=== PATIENT | male | born 1975 | race Caucasian/White ===

== ENCOUNTER 2023-09-01 07:59 | Emergency (ER) | payer OTHER, SELFPAY ==
[2023-09-01 08:11] VITALS: BP 136/97; PULSE 108; RESP 18; TEMP 36.8; O2SAT 98; BMI 30.7
--- NOTE | 2023-09-01 08:21 | ED_ITS ---
HPI - Arrhythmia/Palpitations 2 General: Chief Complaint: Arrhythmia/Palpitations Stated Complaint: elavated HR Time Seen by Provider: 09/01/23 08:14 Source: patient Mode of arrival: ambulatory History of Present Illness: 48-year-old male presents to the emergen cy room with complaints of rapid heart rate irregular heart rate. He has a history of intermittent atrial fibrillation is a known history of coronary artery disease. Symptoms began overnight. He is not on any medications to slow his heart rate or any anticoagulation. Not having any chest pain or shortness of breath no radiation of discomfort into the neck or arms. MD complaint: rapid heart beat and heart racing Duration: constant Severity: mild Arrhythmia history: atrial fibrillation Associated symptoms: Deny nausea or vomiting Review of Systems 2 Const: Denies: fever(s) or chills Card: Reports: palpitations and irregular heart rhythm; Denies: chest pain, edema or swelling of feet/ankles Resp: Denies: dyspnea GI: Denies: abdominal pain, nausea or vomiting : Denies: flank pain, dysuria, urinary frequency or urinary urgency Musc: Denies: neck pain or back pain Skin/Breast: Denies: rash PFSH ED 2 PFSH: Medical History History of hypertension History of coronary artery disease Physical Exam 2 Const: GENERAL APPEARANCE: cooperative and comfortable O RIENTATION/CONSCIOUSNESS: Yes awake, Yes oriented to person, Yes oriented to place and Yes oriented to time HENMT: COMMON NORMALS: normocephalic, atraumatic and hearing grossly normal bilaterally HEAD & SCALP: normocephalic and atraumatic Resp: COMMON NORMALS: normal respiratory effort, No retractions, No use of accessory muscles and clear to auscultation bilaterally AUSCULTATION: clear to auscultation bilaterally Cardio: COMMON NORMALS: No murmurs present (Cardio) RATE: tachycardic R HYTHM: abnormal rhythm irregularly irregular GI: COMMON NORMALS: Soft to palpation and No hepatosplenomegaly present A USCULTATION: Yes normoactive bowel sounds PALPATION: Yes Soft to palpation, No Tenderness to palpation present (GI), No Guarding due to palpation present (GI) and Yes No hepatosplenomegaly present Extremity: COMMON NORMALS: normal to inspection, capillary refill normal, no clubbing, cyanosis or edema, no calf tenderness and no pedal edema Neuro: SENSORIUM/ORIENTATION: Yes oriented to person, Yes oriented to place and Yes oriented to time Skin: COMMON NORMALS: no rashes or lesions noted GENERAL SKIN EXAM: no rashes or lesions noted Course 2 Vital Signs: Vital signs: Vital Signs Temperature 98.3 F 09/01/23 08:11 Pulse Rate 63 09/01/23 11:17 Respiratory Rate 15 09/01/23 11:17 Blood Pressure 123/75 09/01/23 11:17 Pulse Oximetry 97 09/01/23 11:17 Oxygen Delivery Me thod Room Air 09/01/23 10:05 MDM - Arrhythmia/Palpitations Medical Decision Making Atrial fibrillation intermittent. Resolved spontaneously while here we ordered to Cardizem to treat but he had resolved spontaneously we did give him 25 mg metoprolol to tartrate he remained in normal sinus rhythm cardiac enzymes are negative. Will discharge home decrease his amlodipine to 5 mg daily add metoprolol succinate 25 mg daily to start tonight. Follow-up with his primary care doctor soon as he is able. Differential Diagnosis Likely palpitations Medical Records I reviewed the patient's medical records. Lab Data I reviewed the patient's lab results. 09/01/23 08:20 09/01/23 08:20 Radiology Impressions Chest X-Ray 09/01/23 08:32 IMPRESSION: No acute disease. Laboratory Results WBC 6.93 10^3/uL (3.29-11.43) 09/01/23 08:20 RBC 5.08 10^6/uL (3.85-5.65) 09/01/23 08:20 Hgb 15.90 g/dL (11.27-16.99) 09/01/23 08:20 Hct 46.0 % (37-53) 09/01/23 08:20 MCV 90.6 fl (82-101) 09/01/23 08:20 MCH 31.3 pg (27-33) 09/01/23 08:20 MCHC 34.6 g/dL (30-55) 09/01/23 08:20 RDW 13.1 % (12.1-15.1) 09/01/23 08:20 Plt Count 371 10^3/cmm (157-399) 09/01/23 08:20 MPV 9.6 fL (7.4-10.4) 09/01/23 08:20 Neut % (Auto) 61.6 % 09/01/23 08:20 Lymph % (Auto) 25.1 % 09/01/23 08:20 Guthrie % (Auto) 10.2 % 09/01/23 08:20 Eos % (Auto) 1.7 % 09/01/23 08:20 Baso % (Auto) 1.3 % 09/01/23 08:20 Neut # (Auto) 4.26 10^3/uL (1.8-7.7) 09/01/23 08:20 Lymph # (Auto) 1.7 10^3/uL (0.8-4.8) 09/01/23 08:20 Guthrie # (Auto) 0.7 10^3/uL (0.2-0.9) 09/01/23 08:20 Eos # (Auto) 0.1 10^3/uL (0.0-0.8) 09/01/23 08:20 Baso # (Auto) 0.1 10^3/uL (0.0-0.1) 09/01/23 08:20 Nucleated RBC % (auto) 0 % 09/01/23 08:20 Nucleated RBCs # 0.0 /100WBC 09/01/23 08:20 Sodium 138 mmol/L (136-145) 09/01/23 08:20 Potassium 3.8 mmol/L (3.5-5.1) 09/01/23 08:20 Chloride 103 mmol/L (98-107) 09/01/23 08:20 Carbon Dioxide 24 mmol/L (22-29) 09/01/23 08:20 Anion Gap 14.8 (5-19) 09/01/23 08:20 BUN 11 mg/dL (6-20) 09/01/23 08:20 Creatinine 0.9 mg/dL (0.7-1.2) 09/01/23 08:20 GFR Calculation 89.7 mL/min (90-130) L 09/01/23 08:20 Glucose 126 mg/dL (65-115) H 09/01/23 08:20 Calculated Osmolality 287 mOsm/kg (285-295) 09/01/23 08:20 Calcium 9.5 mg/dL (8.5-10.5) 09/01/23 08:20 Total Bilirubin 0.2 mg/dL (0.15-1.2) 09/01/23 08:20 AST 18 U/L (0-40) 09/01/23 08:20 ALT 19 U/L (0-41) 09/01/23 08:20 Alkaline Phosphatase 100 U/L (40-130) 09/01/23 08:20 Troponin T Baseline 21 ng/L (0-15) H 09/01/23 08:20 Troponin T 120 Minute 21.80 ng/L (0-15) H 09/01/23 10:27 Delta Troponin T 0.80 ABS# (0-10) 09/01/23 10:27 NT-Pro-B Natriuret Pep 78 pg/mL (0-125) 09/01/23 08:20 Total Protein 7.8 g/dL (6.6-8.7) 09/01/23 08:20 Albumin 4.7 g/dL (3.5-5.2) 09/01/23 08:20 Globulin 3.1 g/dL (1.3-4.6) 09/01/23 08:20 TSH 2.16 uIU/mL (0.27-4.20) 09/01/23 08:20 Urine Color Yellow (Yellow) 09/01/23 08:51 Urine Appearance Clear (CLEAR) 09/01/23 08:51 Urine pH 7 (5-7) 09/01/23 08:51 Ur Specific [place] 1.005 (1.005-1.030) 09/01/23 08:51 Urine Protein Neg (Negative) 09/01/23 08:51 Urine Glucose (UA) Norm (Normal) 09/01/23 08:51 Urine Ketones Negative (Negative) 09/01/23 08:51 Urine Blood Neg (Negative) 09/01/23 08:51 Urine Nitrate Negative (Negative) 09/01/23 08:51 Urine Bilirubin Neg (Negative) 09/01/23 08:51 Urine Urobilinogen Norm mg/dL (Negative) 09/01/23 08:51 Ur Leukocyte Esterase Negative (Negative) 09/01/23 08:51 All radiology interpretation(s) finalized by discharge Discharge Plan Discharge Patient Disposition: Home Clinical Impression: Intermittent atrial fibrillation Condition: Stable Prescriptions: New Toprol XL 25 mg tablet extended release 24 hr 25 mg PO DAILY Qty: 30 0RF Discharge Orders: Discharge ED (Routine); Ordered 09/01/23 Ordered By: Javier Rodas Referrals: Diamond Good, [Primary Care Provider] - Discharge Diet: Usual diet Discharge Activity: Limit activity as instructed Patient Instructions: Opioid Safety, Pain Management Activity Restrictions/Additional Instructions: Thank you for choosing [facility] for your healthcare needs today. It is very important that you follow up as instructed or that you return to the Emergency Department should you have concerns or if your condition changes or worsens in any way. You were seen today with with intermittent atrial fibrillation. You converted to a normal sinus rhythm while in the ER. Reccomend srtartng Toprol XL 25mg daily begining tonight. 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 Would also recommend decreasing your amilodipine to 5mg once daily. Coding Level of Care Code ED Drapery Cutter for Sean Casper
[2023-09-01 08:28] LABS: Basophils # 0.1 10^3/uL (0.0-0.1); Basophils % 1.3 %; Eosinophils # 0.1 10^3/uL (0.0-0.8); Eosinophils % 1.7 %; Lymphocytes # 1.7 10^3/uL (0.8-4.8); Lymphocytes % 25.1 %; Mean Corpuscular HGB Conc 34.6 g/dL (30-55); Mean Corpuscular Hemoglobin 31.3 pg (27-33); Mean Corpuscular Volume 90.6 fl (82-101); Mean Platelet Volume 9.6 fL (7.4-10.4); Monocytes # 0.7 10^3/uL (0.2-0.9); Monocytes % 10.2 %; Neutrophils # 4.26 10^3/uL (1.8-7.7); Neutrophils % 61.6 %; Nucleated Red Blood Cells % 0 %; Platelet Count 371 10^3/cmm (157-399); Red Blood Count 5.08 10^6/uL (3.85-5.65); Red Cell Distribution Width 13.1 % (12.1-15.1); White Blood Count 6.93 10^3/uL (3.29-11.43)
--- NOTE | 2023-09-01 08:32 | XRR_ITS ---
PROCEDURE INFORMATION: Exam: XR Chest Exam date and time: 09/01/2023 8:39 AM Age: 48 years old Clinical indication: Cough and dyspnea; Additional info: Dyspnea/cough TECHNIQUE: Imaging protocol: Radiologic exam of the chest. Views: 1 view. COMPARISON: No relevant prior studies available. FINDINGS: Lungs: Unremarkable. No consolidation. Pleural spaces: Unremarkable. No pleural effusion. No pneumothorax. Heart/Mediastinum: Unremarkable. No cardiomegaly. Bones/joints: Mild scoliosis. Otherwise, unremarkable. XR/XR chest 1V portable [id number] IMPRESSION: No acute disease.
--- NOTE | 2023-09-01 08:36 | ECG_ITS ---
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 Measurements Intervals [place] Rate: 96 P: 34 TX: 150 QRS: 23 QRSD: 86 T: 14 QT: 346 QTc: 438 Interpretive Statements SINUS RHYTHM POSSIBLE LEFT ATRIAL ENLARGEMENT [-0.1mV P-WAVE IN V1/V2] NONSPECIFIC T-WAVE ABNORMALITY No previous ECG available for comparison Electronically Signed On 09-02-2023 20:16:18 CDT by Ania Godwin M.D. [email or web address]
[2023-09-01 08:45] LABS: Alanine Aminotransferase 19 U/L (0-41); Albumin Level 4.7 g/dL (3.5-5.2); Alkaline Phosphatase 100 U/L (40-130); Anion Gap 14.8 (5-19); Aspartate Amino Transferase 18 U/L (0-40); Blood Urea Nitrogen 11 mg/dL (6-20); Calcium 9.5 mg/dL (8.5-10.5); Carbon Dioxide 24 mmol/L (22-29); Chloride 103 mmol/L (98-107); Creatinine Clr Calc Pharmacy 119.5021; Globulin 3.1 g/dL (1.3-4.6); Glomerular Filtration Rate 89.7 mL/min (90-130); Glucose 126 mg/dL (65-115); Osmolality Calculated 287 mOsm/kg (285-295); Potassium 3.8 mmol/L (3.5-5.1); Sodium 138 mmol/L (136-145); Total Bilirubin 0.2 mg/dL (0.15-1.2); Total Protein 7.8 g/dL (6.6-8.7)
[2023-09-01 08:46] LABS: Troponin(5th) Baseline 21 ng/L (0-15)
[2023-09-01] MEDS: metoprolol tartrate 25 mg Tablet PO (08:47)
[2023-09-01] MEDS: aspirin 81 mg Chew Tablet 324 MG PO (08:50)
[2023-09-01 08:56] LABS: Add Urine Microscopic? NO; Charge for UA Resulting for Rev
[2023-09-01 09:01] LABS: NT Pro B Type Natriuretic Pept 78 pg/mL (0-125); Thyroid Stimulating Hormone 2.16 uIU/mL (0.27-4.20)
[2023-09-01 09:04] LABS: Bilirubin Urine Neg (Negative); Blood Urine Neg (Negative); Glucose Urine UA Norm (Normal); Ketones Urine Negative (Negative); Leukocyte Esterase Urine Negative (Negative); Nitrate Urine Negative (Negative); Protein Urine Neg (Negative); Specific Gravity, Urine 1.005 (1.005-1.030); Urine Appearance Clear (CLEAR); Urine Color Yellow (Yellow); Urobilinogen Urine Norm (Negative); pH Urine 7 (5-7)
[2023-09-01 10:05] VITALS: BP 136/97; PULSE 57; RESP 17; O2SAT 95
--- NOTE | 2023-09-01 10:20 | ECG_ITS ---
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 Measurements Intervals [place] Rate: 134 P: 0 TN: 0 QRS: 30 QRSD: 88 T: 34 QT: 309 QTc: 462 Interpretive Statements ATRIAL FIBRILLATION WITH RAPID VENTRICULAR RESPONSE NONSPECIFIC ST & T-WAVE ABNORMALITY ABNORMAL RHYTHM ECG No previous ECG available for comparison Electronically Signed On 09-02-2023 20:37:25 CDT by Ania Godwin M.D. [id number]
[2023-09-01 11:17] VITALS: BP 123/75; PULSE 63; RESP 15; O2SAT 97
== END 2023-09-01 11:18 | disposition home or self-care (01) ==
PROVIDERS: Emergency Provider Family Medicine; PCP Family Medicine
DX: I48.91 Unspecified atrial fibrillation (principal); I10 Essential (primary) hypertension; I25.10 Atherosclerotic heart disease of native coronary artery without angina pectoris
CPT/HCPCS: 36415; 71045; 80053; 81003; 83880; 84443; 84484; 85025; 93005; 99285